=== PATIENT | female | born 1995 | race Caucasian/White ===

== ENCOUNTER 2020-07-29 14:19 | Outpatient (CLI) | payer OTHER | END 2020-07-29 14:20 | disposition home or self-care (01) | LOC: CTENTCT 14:19 | PROVIDERS: ATTEND Specialist | DX: J32.9 Chronic sinusitis, unspecified (principal) | CPT/HCPCS: 70486 ==

== ENCOUNTER 2020-08-28 06:45 | Day surgery (SDC) | payer OTHER ==
[2020-08-27 12:38] VITALS: BMI 19.5
[2020-08-28] MEDS ORDERED: Midazolam HCl 2 mg/2 ml Vial ONE ×2 (08:02→08:10)
[2020-08-28 08:07] LABS: BHCG - Serum Negative (NEGATIVE); Pregs Control Background? CLEAR/WHITE (CLR/WHITE); Pregs Control Bar Appear? YES (CONTROL BAR)
[2020-08-28] MEDS ORDERED: Fentanyl 100 MCG/2 ML VIAL ONE ×2 (08:10→09:37)
[2020-08-28] MEDS ORDERED: AFRIN NASAL MIST 15 ML BOT ONE (08:12)
[2020-08-28] MEDS ORDERED: Bacitracin Zinc Ointment 30 gm TUBE ONE (08:12)
[2020-08-28] MEDS ORDERED: Lidocaine 1% w/Epinephrine 1:100K 20 ML VIAL ONE (08:12)
[2020-08-28] MEDS ORDERED: Lidocaine 1% PF 5 ML VIAL ONE (08:23)
[2020-08-28] MEDS ORDERED: Dexamethasone 20 MG/5 ML VIAL ONE (08:23)
[2020-08-28] MEDS ORDERED: PROPOFOL 200 MG/20 ML VIAL ONE (08:23)
[2020-08-28] MEDS ORDERED: Ondansetron PF 4 MG/2 ML Vial ONE (08:23)
[2020-08-28] MEDS ORDERED: PHENYLEPHRINE-NS 100 MCG/ML 10 ML SYRINGE ONE (08:23)
[2020-08-28] MEDS ORDERED: EPINEPHrine 1 MG/ML AMP ONE (08:37)
[2020-08-28] MEDS ORDERED: Meperidine HCl/PF 25 MG/ML VIAL ONE (10:04)
[2020-08-28] MEDS ORDERED: Labetalol HCl 100 MG/20 ML VIAL ONE (10:37)
[2020-08-28] MEDS ORDERED: Hydrocodone-Acetamin 15 ML UDCUP ONE (11:09)
== END 2020-08-28 12:15 | disposition home or self-care (01) ==
LOC: SDC 06:45
PROVIDERS: ATTEND Specialist
PROC: 09BT8ZZ Excision of Left Frontal Sinus, Via Natural or Artificial Opening Endoscopic (ICD-10-PCS; principal; 2020-08-28)
PROC: 099R8ZZ Drainage of Left Maxillary Sinus, Via Natural or Artificial Opening Endoscopic (ICD-10-PCS; principal; 2020-08-28)
PROC: 099Q8ZZ Drainage of Right Maxillary Sinus, Via Natural or Artificial Opening Endoscopic (ICD-10-PCS; principal; 2020-08-28)
PROC: 09BS8ZZ Excision of Right Frontal Sinus, Via Natural or Artificial Opening Endoscopic (ICD-10-PCS; principal; 2020-08-28)
PROC: 09BL8ZZ Excision of Nasal Turbinate, Via Natural or Artificial Opening Endoscopic (ICD-10-PCS; principal; 2020-08-28)
PROC: 09BM8ZZ Excision of Nasal Septum, Via Natural or Artificial Opening Endoscopic (ICD-10-PCS; principal; 2020-08-28)
DX: J32.0 Chronic maxillary sinusitis (principal); J34.2 Deviated nasal septum; J34.3 Hypertrophy of nasal turbinates; J34.89 Other specified disorders of nose and nasal sinuses; J30.1 Allergic rhinitis due to pollen; J30.81 Allergic rhinitis due to animal (cat) (dog) hair and dander
CPT/HCPCS: 84703; 85014; J0171; J1100; J2175; J2250; J2405; J2704; J3010